=== PATIENT | female | born 1995 | race Caucasian/White ===

== ENCOUNTER → 2021-01-01 | Emergency (ER) | payer MEDICAID ==
[~2021-01-01] VITALS: Ht 170.2 cm; Wt 81.6 kg
[~2021-01-01] MED LIST: IV NS 0.9% 1,000 ML BAG IV ONE; ONDANSETRON HCL/PF - ER 4 MG/2 ML VIAL IV ONE; ONDANSETRON HCL/PF 4 MG/2 ML VIAL ONE
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
--- NOTE | 2021-01-01 00:57 | NUR ---
SUKHJINDER, FRIEND [phone]
--- NOTE | 2021-01-01 00:59 | NUR ---
URINE SENT TO LAB
--- NOTE | 2021-01-01 01:32 | NUR ---
TAKEN TO CT
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
--- NOTE | 2021-01-01 02:32 | NUR ---
Patient discharged to home in stable condition. Written and verbal after care instructions given. Patient verbalizes understanding of instruction. IV removed. Catheter intact and site benign. Pressure and 4x4 applied to site. No bleeding noted.Pt ambulatory with a steady gait
[2021-01-01 02:35] VITALS: BP 128/80
== END | disposition home or self-care (01) ==
LOC: ER 00:36
DX: S61.301A Unspecified open wound of left index finger with damage to nail, initial encounter (principal); R55 Syncope and collapse; W26.0XXA Contact with knife, initial encounter; Y93.89 Activity, other specified; Y92.89 Other specified places as the place of occurrence of the external cause; Y99.8 Other external cause status
CPT/HCPCS: 70450; 84703; 96361; 96374; 99284; J2405; J7030